=== PATIENT | male | born 1980 | race Caucasian/White ===

== ENCOUNTER 2016-04-09 23:26 | Emergency (ER) | payer OTHER ==
[~2016-04-09] VITALS: Ht 185.4 cm; Wt 110.9 kg
[~2016-04-09 23:26] MED LIST: BACTRIM,SEPT1 TABLET PO; CIPRO500 MG PO; FLAGYL500 MG PO; FLEXERIL10 MG PO; FLEXERIL5 MG PO; KEFLEX500 MG PO; LORTAB 5-325 M1 EACH PO; OXYCODONE HCL5 MG PO; PERCOCET 5/31 TABLET PO; PHENERGAN-CODE120 ML PO; PREDNISONE10 MG PO; PREDNISONE50 MG PO; TESSALON PERLE100 MG PO; TORADOL10 MG PO; TRAMADOL HCL50 MG PO
[2016-04-10 01:41] LABS: HEMATOCRIT 32.2 % (38.0-50.0); MCH 26.2 PG (29.0-34.0); MCHC 32.9 G/DL (30.0-36.0); MCV 79.7 FL (86-99); MEAN PLAT.VOLUME 9.1 uM^3 (9.0-12.4); PLATELET COUNT 551 K/uL (156-360); RBC DIS.WIDTH-CV 14.3 % (11.8-14.6); RBC DIS.WIDTH-SD 40.6 % (39-53); RED BLOOD COUNT 4.04 M/uL (4.00-5.50); WHITE BLOOD COUNT 13.7 K/uL (4.1-10.2)
[2016-04-10 01:42] LABS: BASOPHIL COUNT 0.1 K/uL (0-0.1); EOSINOPHIL (%) 1.8 % (0-5); EOSINOPHIL COUNT 0.3 K/uL (0-0.3); IMMATURE GRANULOCYTE (%) 0.5 % (0.0-0.7); IMMATURE GRANULOCYTE COUNT 0.7 K/uL; LYMPHOCYTE COUNT 3.4 K/uL (1.0-2.8); MONOCYTE (%) 5.8 % (3-12); MONOCYTE COUNT 0.8 K/uL (0-0.8); NEUTROPHIL (%) 66.7 % (45-76); NEUTROPHIL COUNT 9.1 K/uL (1.8-6.4)
[2016-04-10 01:49] LABS: CHLORIDE 101 mEq/L (99-109); POTASSIUM 3.7 mEq/L (3.7-5.4); SODIUM 132 mEq/L (136-147)
[2016-04-10 01:50] LABS: GLUCOSE 107 mg/dL (70-99)
[2016-04-10 01:52] LABS: ANION GAP 9 MEQ/L (2-14)
[2016-04-10 01:54] LABS: GFR ESTIMATE (CALCULATED) > 59 mL/min/
[2016-04-10 01:55] LABS: UREA NITROGEN (BUN) 12 mg/dL (9-23)
[2016-04-10] MEDS ORDERED: CLINDAMYCIN HC300 MG PO (04:32)
[2016-04-10 06:50] VITALS: BP 120/70
== END 2016-04-10 07:01 | disposition left against medical advice (07) ==
LOC: EME 23:26
DX: T79.2XXA Traumatic secondary and recurrent hemorrhage and seroma, initial encounter (principal); X58.XXXA Exposure to other specified factors, initial encounter; L03.115 Cellulitis of right lower limb; E87.1 Hypo-osmolality and hyponatremia; F17.200 Nicotine dependence, unspecified, uncomplicated
CPT/HCPCS: 73701; 80048; 83605; 85025; 87040; 99281; 99285; J0295; J3370; J7030; J7050

== ENCOUNTER 2016-10-19 15:46 | Emergency (ER) | payer OTHER ==
[~2016-10-19] VITALS: Ht 185.4 cm; Wt 109.2 kg
[~2016-10-19 15:46] MED LIST changes: +CLINDAMYCIN HC300 MG PO
[2016-10-19 17:17] LABS: POINT-OF-CARE METER ID UU14100415
[2016-10-19] MEDS ORDERED: NARCAN4 MG NS (17:52)
[2016-10-19 18:08] VITALS: BP 105/66
== END 2016-10-19 18:10 | disposition home or self-care (01) ==
LOC: EME 15:46
PROVIDERS: Emergency Medicine
DX: T40.2X1A Poisoning by other opioids, accidental (unintentional), initial encounter (principal); F17.200 Nicotine dependence, unspecified, uncomplicated
CPT/HCPCS: 82948; 99281; 99284